=== PATIENT | female | born 1965 | race Hispanic/Latino ===

== ENCOUNTER 2017-08-11 15:49 | Outpatient (CLI) | payer OTHER, BC | END 2017-08-11 15:50 | disposition home or self-care (01) | LOC: BICRAD 15:49 | PROVIDERS: ATTEND Family Medicine | DX: R53.83 Other fatigue (principal); M06.9 Rheumatoid arthritis, unspecified; Z78.0 Asymptomatic menopausal state | CPT/HCPCS: 71046 ==

== ENCOUNTER 2025-02-23 14:46 | Outpatient (CLI) | payer BC | END 2025-02-23 14:47 | disposition home or self-care (01) | LOC: SCSBT 14:46 | PROVIDERS: ATTEND Family Medicine | DX: M85.89 Other specified disorders of bone density and structure, multiple sites (principal) | CPT/HCPCS: 77080 ==